=== PATIENT | female | born 1940 | race Caucasian/White ===

== ENCOUNTER 2018-01-06 10:09 | Emergency (ER) | payer MEDICARE, OTHER ==
[2018-01-06 10:37] VITALS: BP 149/85
--- NOTE | 2018-01-06 11:07 | RAD ---
INDICATION: Right ankle injury. TECHNIQUE: 3 views of the right ankle were obtained. FINDINGS: Soft tissue swelling is noted along the anterolateral aspect of the ankle. There is suggestion of a small avulsion fracture fragment arising from the lateral calcaneus measuring approximately 3 mm in size. There is a linear calcific density which projects inferior to the metatarsal bones on the lateral view measuring 4 mm in size suspicious for a small foreign body. IMPRESSION: 1. PROBABLE SMALL AVULSION FRACTURE FRAGMENT ARISING FROM THE LATERAL CALCANEUS. 2. FINDINGS MOST CONSISTENT WITH A SMALL FOREIGN BODY LOCATED ALONG THE PLANTAR ASPECT OF THE FOOT AT THE LEVEL OF THE PROXIMAL METATARSALS.
--- NOTE | 2018-01-06 11:17 | UC ---
Lower Extremity/Ankle HPI - HPI Summary HPI Summary: 77-year-old woman comes to clinic today with a right ankle INJURY. A few months ago she injured the ankle while walking. She did not seek medical attention at that time. He gradually improved although it never completely improved. 3 days ago she rolled her right ankle which gave her quite a bit of pain and swelling. It hurts quite a bit to try to weight-bear. She has been taking ibuprofen which does help decrease the pain. Also resting and elevation helps decrease the pain. - History of Current Complaint Chief Complaint: UCLowerExtremity Stated Complaint: S/P FALL RIGHT ANKLE COMPLAINT Time Seen by Provider: 01/06/18 10:40 Hx Last Menstrual Period: n/a Pain Intensity: 3 - Allergies/Home Medications Allergies/Adverse Reactions: Allergies Allergy/AdvReac Type Severity Reaction Status Date / Time codeine Allergy Severe Vomiting Verified 01/06/18 10:38 Home Medications: Home Medications [place]-3 Fatty Acids/Fish Oil [[place] 3] 1 cap PO DAILY 01/06/18 [History Confirmed 01/06/18] PMH/Surg Hx/FS Hx/Imm Hx Cardiovascular History: Hypertension Other Respiratory History: NO COPD - Surgical History Surgical History: Yes Surgery Procedure, Year, and Place: tubal ligation 1973 - Family History Known Family History: Negative: Cardiac Disease, Diabetes - Social History Alcohol Use: Occasionally Substance Use Type: None Smoking Status (MU): Former Smoker When Did the Patient Quit Smoking/Using Tobacco: 1976 Review of Systems Constitutional: Negative Skin: Bruising - RT ANKLE Eyes: Negative ENT: Negative Respiratory: Negative Cardiovascular: Negative Gastrointestinal: Negative Motor: Decreased ROM - RT ANKLE SECONDARY TO PAIN Neurovascular: Negative Musculoskeletal: Other: - RT ANKLE PAIN/SWELLING Neurological: Negative Psychological: Negative Is Patient Immunocompromised?: No All Other Systems Reviewed And Are Negative: Yes Physical Exam Triage Information Reviewed: Yes Appearance: Well-Appearing, No Pain Distress, Well-Nourished Vital Signs: Initial Vital Signs Temp 97.8 F 01/06/18 10:29 Pulse 79 01/06/18 10:29 Resp 18 01/06/18 10:29 BP 149/85 01/06/18 10:29 Pulse Ox 99 01/06/18 10:29 Vital Signs Reviewed: Yes Eyes: Positive: Conjunctiva Clear Neck: Positive: Supple Respiratory: Positive: No respiratory distress Musculoskeletal: Positive: Other: - Right ankle is swollen laterally and tender to palpation distal to the fibula. The Achilles tendon is intact foot is otherwise nontender. Normal capillary refill. Normal pulses. Neurological Exam: Normal Neurological: Positive: Alert, Muscle Tone Normal Psychological Exam: Normal Skin: Positive: Other - Ecchymosis right lateral ankle Lower Extremity Course/Dx - Course Course Of Treatment: Order Information: ANKLE RIGHT 3+VWS. Accession Number: [id number]. CPT: 45483. INDICATION: Right ankle injury. TECHNIQUE: 3 views of the right ankle were obtained. FINDINGS: Soft tissue swelling is noted along the anterolateral aspect of the ankle. There is suggestion of a small avulsion fracture fragment arising from the lateral. calcaneus measuring approximately 3 mm in size. There is a linear calcific density which projects inferior to the metatarsal bones on the. lateral view measuring 4 mm in size suspicious for a small foreign body. IMPRESSION: 1. PROBABLE SMALL AVULSION FRACTURE FRAGMENT ARISING FROM THE LATERAL CALCANEUS. 2. FINDINGS MOST CONSISTENT WITH A SMALL FOREIGN BODY LOCATED ALONG THE PLANTAR ASPECT OF. THE FOOT AT THE LEVEL OF THE PROXIMAL METATARSALS. . <Electronically signed by Sal Bhatt MD in OV> 01/06/18 1104. I discussed the results of the x-ray with the patient. We will put her in an Evan wrap and a gel splint and have her be nonweightbearing with crutches. Follow-up with orthopedics. We discussed the possibility of a foreign body in the plantar aspect of her foot the patient does not recall any foreign body and she is not tender in that area. - Differential Dx/Diagnosis Provider Diagnoses: RIGHT ANKLE AVULSION FRACTURE Discharge - Sign-Out/Discharge Documenting (check all that apply): Patient Departure All imaging exams completed and their final reports reviewed: Yes - Discharge Plan Condition: Stable Disposition: HOME Patient Education Materials: Avulsion Fracture (ED), Ankle Fracture (ED) Referrals: Cooper Michaels MD [Primary Care Provider] - Adry Malone MD [Medical Doctor] - Additional Instructions: FOLLOW UP WITH ORTHOPEDICS. GET RECHECKED FOR ANY WORSENING OF YOUR CONDITION OR QUESTIONS OR CONCERNS. - Billing Disposition and Condition Condition: STABLE Disposition: Home
== END 2018-01-06 11:54 | disposition home or self-care (01) ==
LOC: UCCORT 10:09
DX: S92.001A Unspecified fracture of right calcaneus, initial encounter for closed fracture (principal); X50.0XXA Overexertion from strenuous movement or load, initial encounter; Y93.9 Activity, unspecified; Y92.9 Unspecified place or not applicable; Z88.5 Allergy status to narcotic agent; I10 Essential (primary) hypertension; Z87.891 Personal history of nicotine dependence
CPT/HCPCS: 99213; G0463